=== PATIENT | female | born 1985 | race Asian ===

== ENCOUNTER → 2017-11-05 | Outpatient (CLI) | payer OTHER ==
[~2017-11-05] MED LIST: LEVO50TA PO; MTR600X PO; OMEG10007 PO; OXYC-57 PO; PRENTAB26 PO
[2017-11-05 15:25] LABS: BASO % 0.1 %; BASO ABS # 0.01 K/uL (0-0.2); EOS % 0.7 %; EOS ABS # 0.08 K/uL (0-0.5); HEMATOCRIT 33.9 % (37-47); HEMOGLOBIN 11.3 g/dL (12.0-16.0); IG# 0.09 K/uL (0.00-0.02); LYMPH % 16.2 %; LYMPH ABS # 1.96 K/uL (1.2-3.4); MEAN CELL VOLUME 90.6 fL (80-100); MEAN CORPUSCULAR HEMOGLOBIN 30.2 pg (25-34); MEAN CORPUSCULAR HGB CONC 33.3 g/dl (32-36); MEAN PLATELET VOLUME 9.4 fL (7.4-10.4); MONO % 5.3 %; MONO ABS # 0.64 K/uL (0.11-0.59); NEUT ABS # 9.33 K/uL (1.4-6.5); PLATELET COUNT 313 K/uL (130-400); RED CELL DISTRIBUTION WIDTH CV 14.2 % (11.5-14.5); RED CELL DISTRIBUTION WIDTH SD 46.7 fL (36.4-46.3); WHITE BLOOD COUNT 12.11 K/uL (4.8-10.8)
== END | disposition home or self-care (01) ==
LOC: C.LAB1850 14:21
PROVIDERS: ATTEND Obstetrics & Gynecology
DX: Z34.83 Encounter for supervision of other normal pregnancy, third trimester (principal); Z3A.00 Weeks of gestation of pregnancy not specified

== ENCOUNTER → 2017-11-10 | Outpatient (CLI) | payer OTHER | END | disposition home or self-care (01) | LOC: C.LAB1850 15:30 | PROVIDERS: ATTEND Obstetrics & Gynecology | DX: Z34.83 Encounter for supervision of other normal pregnancy, third trimester (principal) ==

== ENCOUNTER → 2017-12-06 | Outpatient (CLI) | payer OTHER | END | disposition home or self-care (01) | LOC: C.LAB1850 14:24 | PROVIDERS: ATTEND Internal Medicine Endocrinology, Diabetes & Metabolism | DX: E03.9 Hypothyroidism, unspecified (principal) ==

== ENCOUNTER → 2017-12-17 | Outpatient (CLI) | payer OTHER | END | disposition home or self-care (01) | LOC: C.LAB1850 15:50 | PROVIDERS: ATTEND Obstetrics & Gynecology | DX: E06.3 Autoimmune thyroiditis (principal); Z87.59 Personal history of other complications of pregnancy, childbirth and the puerperium ==

== ENCOUNTER → 2017-12-21 | Outpatient (CLI) | payer OTHER | END | disposition home or self-care (01) | LOC: C.LABSPEC 16:14 | PROVIDERS: ATTEND Obstetrics & Gynecology | DX: O09.93 Supervision of high risk pregnancy, unspecified, third trimester (principal) ==

== ENCOUNTER 2018-01-07 04:41 | Inpatient (IN) | payer OTHER ==
[~2018-01-07] VITALS: Ht 157.5 cm; Wt 75.0 kg
[2018-01-07] VITALS (18 sets, daily range): BP systolic 96–108; BP diastolic 57–69; PULSE 77–98; TEMP 36.6–37.1; O2SAT 93–96; Ht 157.5 cm; Wt 75.0 kg
[2018-01-07] MEDS ORDERED: LEVO125T72 PO (05:19)
[2018-01-07] MEDS ORDERED: MAGN400T6 PO (05:20)
[2018-01-07] MEDS ORDERED: LACTATED RINGER'S 1000ML 1,000 ML IV ONE (05:37)
[2018-01-07] MEDS ORDERED: CITRIC ACID/SODIUM CITRATE 15 ML UDC PO ONE (05:45)
[2018-01-07] MEDS ORDERED: MoRPHine SULFATE PF 1 MG/ML 10 ML AMP/VIAL ONE (05:48)
[2018-01-07] MEDS ORDERED: FENTANYL CITRATE INJ 50 MCG/1 ML 2 ML VIAL ONE (05:48)
[2018-01-07] MEDS ORDERED: CLINDAMYCIN IV 900 MG in DEXTROSE 5% 100ML 100 ML IV SCH (06:00)
[2018-01-07] MEDS ORDERED: PHENYLEPHRINE 100MCG/ML 5ML SYR ONE (06:29)
[2018-01-07] MEDS ORDERED: OXYTOCIN INJ 10 UNITS/ML VIAL ONE ×2 (06:29→06:50)
[2018-01-07] MEDS ORDERED: ONDANSETRON INJ 2 MG/ML 2 ML VIAL ONE (06:44)
[2018-01-07] MEDS ORDERED: SUPERCREAM 0.870 % 15GM JAR EXT PRN (07:15)
[2018-01-07] MEDS ORDERED: BENZOCAINE 20% AER SPR 82.5 GM CAN EXT PRN (07:15)
[2018-01-07] MEDS ORDERED: LANOLIN OINT EXT PRN (07:15)
[2018-01-07] MEDS ORDERED: DIPHTHERIA/TETANUS/PERTUSSIS 0.5 ML SYR/VIAL IM. ONE (07:15)
[2018-01-07] MEDS ORDERED: HYDROCORTISONE ACETATE 25 MG SUPP PR PRN (07:15)
--- NOTE | 2018-01-07 07:18 | [facility] Post Operative Brief Note ---
Immediate Operative Summary Operative Date Jan 07, 2018. Pre-Operative Diagnosis LABOR PRIOR DECLINES TOLAC Post-Operative Diagnosis LABOR PRIOR DECLINES TOLAC Procedure(s) Performed REPEAT SECTION Surgeon Dr. Richardson Business Area Manager Surgeon(s) Ekta Law RN Estimated Blood Loss 700 Findings Consistent with Post-Op Diagnosis Specimens 1. Cord Blood 2. Placenta Drains None Anesthesia Type Spinal Complication(s) none Disposition Accompanied Pt To Recover: yes Disposition: L&D
[2018-01-07] MEDS ORDERED: OXYTOCIN INJ 30 UNITS in LACTATED RINGER'S 1000ML 1,000 ML IV SCH (07:20)
[2018-01-07] MEDS ORDERED: NALOXONE HCL INJ 1 MG in SODIUM CHLORIDE 0.9% 1000ML 1,000 ML IV PRN (07:21)
[2018-01-07] MEDS ORDERED: LACTATED RINGER'S 1000ML 500 ML IV PRN (07:21)
[2018-01-07] MEDS ORDERED: SODIUM CHLORIDE 0.9% 1000ML 1,000 ML IV PRN (07:21)
[2018-01-07] MEDS ORDERED: NALOXONE HCL INJ 0.08 MG in SYRINGE 1.8 ML IV PRN (07:21)
--- NOTE | 2018-01-07 07:21 | Anesthesiology Progress Note ---
Anesthesia Post Op Note Date & Time Jan 07, 2018 at 07:21 Notes Mental Status: alert / awake / arousable, participated in evaluation Pt Amnestic to Procedure: Yes Nausea / Vomiting: adequately controlled Pain: adequately controlled Airway Patency, RR, SpO2: stable & adequate BP & HR: stable & adequate Hydration State: stable & adequate Neuraxial Anesthesia: was administered, sensory block is resolving Anesthetic Complications: no major complications apparent
[2018-01-07] MEDS ORDERED: NALOXONE HCL 0.4 MG/1 ML VIAL/CARP IV PRN (07:30)
[2018-01-07] MEDS ORDERED: DiphenhydrAMINE HCL 50 MG/ML VIAL IV PRN (07:30)
[2018-01-07] MEDS ORDERED: EpHEDrine SULFATE INJ 50 MG/ML AMP IV PRN (07:30)
[2018-01-07] MEDS: LACTATED RINGER'S 1000ML 1,000 ML IV SCH ×3 (07:30→19:13)
[2018-01-07] MEDS ORDERED: MoRPHine SULFATE PF 1 MG/ML 10 ML AMP/VIAL INT SPINAL PRN (07:30)
[2018-01-07] MEDS ORDERED: MoRPHine SULFATE 2 MG/ML CARP IV PRN (07:30)
[2018-01-07] MEDS ORDERED: NO NARCOTICS OR SEDATIVES SCH (07:30)
[2018-01-07] MEDS ORDERED: DC INTRASPINAL MORPHINE SCH (07:30)
[2018-01-07] MEDS: ONDANSETRON INJ 2 MG/ML 2 ML VIAL IV PRN ×2 (07:36→13:37)
[2018-01-07] MEDS: DOCUSATE SODIUM 100 MG CAP PO SCH ×2 (07:39→20:04)
[2018-01-07] MEDS: PRENATAL VITAMIN TAB PO SCH (07:40)
[2018-01-07 07:47] LABS: BASO % 0.1 %; BASO ABS # 0.01 K/uL (0-0.2); EOS % 0.2 %; EOS ABS # 0.02 K/uL (0-0.5); HEMATOCRIT 39.5 % (37-47); HEMOGLOBIN 13.3 g/dL (12.0-16.0); IG# 0.08 K/uL (0.00-0.02); LYMPH % 10.8 %; LYMPH ABS # 1.38 K/uL (1.2-3.4); MEAN CORPUSCULAR HEMOGLOBIN 30.3 pg (25-34); MEAN CORPUSCULAR HGB CONC 33.7 g/dl (32-36); MEAN PLATELET VOLUME 9.8 fL (7.4-10.4); MONO ABS # 0.51 K/uL (0.11-0.59); NEUT % 84.3 %; NEUT ABS # 10.74 K/uL (1.4-6.5); PLATELET COUNT 228 K/uL (130-400); RED CELL DISTRIBUTION WIDTH CV 16.4 % (11.5-14.5); RED CELL DISTRIBUTION WIDTH SD 53.8 fL (36.4-46.3); WHITE BLOOD COUNT 12.74 K/uL (4.8-10.8)
--- NOTE | 2018-01-07 07:56 | OPERATIVE REPORT ---
DATE OF OPERATION: 01/07/2018 PREOPERATIVE DIAGNOSES: 1. Ruiz intrauterine at term. 2. Active labor. 3. Prior . 4. Declines vaginal after . 5. Suspected macrosomia. POSTOPERATIVE DIAGNOSES: Same. PROCEDURE: Repeat low transverse section with 2-layer uterine closure. SURGEON: Heather Richardson MD. COMPUTER APPLICATIONS INSTRUCTOR: RN. ESTIMATED BLOOD LOSS: 700 mL. FINDINGS: Uterus with normal tubes and ovaries bilaterally. Placenta manually extracted and intact with a 3-vessel cord. SPECIMENS: Cord blood and placenta. DRAINS: None. ANESTHESIA: Spinal. COMPLICATIONS: None. DISPOSITION: Stable to labor and delivery. DESCRIPTION: Arabella is a 32-year-old para 1 with a history of section for a macrosomic infant and failure to progress. She presented at full term with a ruiz intrauterine and in active labor, making change rapidly once she was examined here on labor and delivery from 4-6 cm with significant effacement as well. The patient was counseled on the option of a trial of labor after and attempted versus repeat . This is expected to be on the larger side, similar to her last one. After considering, the patient decided that she is requesting section as planned. She was therefore brought to the operating room. She was placed on the table in the supine position with a leftward tilt and prepped and draped in standard sterile fashion and a hard time-out was taken prior to proceeding. A Pfannenstiel incision was created through the prior scar at the patient's request, she was very happy with the location of her previous scar. This was carried down sharply to the fascia which was incised and extended using Castellanos scissors. The fascia was then elevated using Masoud clamps and sharply and bluntly dissected off the underlying rectus. The midline of the rectus were sharply using Bovie electrocautery and then entry to the peritoneum was made in a blunt manner. The opening of the peritoneum was extended in a blunt manner using the hot box operator's hands. A bladder blade was then introduced and a bladder flap was created using pickups and Metzenbaum scissors. The bladder blade was then replaced behind the bladder flap. The lower uterine segment was examined and found to be well developed and a transverse incision was then made in the usual manner with final entry to the uterus in a blunt manner using the surgeon's finger. Clear fluid was encountered. The infant's head was then elevated to the hysterotomy from which it was easily delivered using mild fundal pressure. The was a vigorous female whose cord was doubly clamped and cut before the infant was taken to the warmer for attention by stoker installation mechanic. The placenta was manually extracted. The uterus was then exteriorized and cleared of all clot and debris using a dry lap sponge. Angles of the hysterotomy were identified using Allis clamps and the hysterotomy was repaired in 2-layer fashion using 0 Vicryl suture. Once this repair was completed, the uterus was anteflexed and the posterior gutter was cleared of clot and debris using irrigation and suction. The tubes and ovaries were examined and found to be normal bilaterally. Uterus was massaged and felt to be somewhat boggy, so Methergine was given as the uterus began to improve. It was then reinternalized. The lateral gutters were cleared of clot and debris using damp lap sponges. When observed off all tension, the hysterotomy was noted to have a tiny amount of oozing from some of the suture puncture sites. This was addressed using Bovie electrocautery and ultimately a decision was made to apply Avitene to the incision as well as an extra precautionary measure. Once the Avitene was applied, the incision was completely hemostatic. The rectus muscles were allowed to reapproximate naturally and the fascia was then closed using a #1 Vicryl suture in a running nonlocked manner. The subcutaneous tissue was copiously irrigated and then gently reapproximated using 3-0 chromic with the skin finally being closed using 4-0 Monocryl in a running subcuticular manner. A Dermabond dressing was then applied. The Araiza was noted to be draining clear yellow urine and the patient was transferred in stable condition to her recovery room. I attest to the content of the Intraoperative Record and any orders documented therein. Any exception s are noted below.
[2018-01-07] MEDS: NALBUPHINE HCL INJ 10 MG/ML AMP IV PRN ×2 (08:26→12:05)
[2018-01-07] MEDS: SIMETHICONE 80 MG CHEW PO SCH ×4 (09:00→20:04)
[2018-01-07] MEDS ORDERED: LEVOTHYROXINE 125 MCG TAB PO ONE (09:26)
[2018-01-07] MEDS ORDERED: COLLAGEN HEMOSTAT ABSORBABLE ONE (09:42)
[2018-01-07] MEDS: KETOROLAC TROMETHAMINE 30 MG/ML VIAL IV. PRN ×2 (09:46→23:56)
[2018-01-08] MEDS ORDERED: ONDANSETRON INJ 2 MG/ML 2 ML VIAL IV PRN (00:10)
[2018-01-08] MEDS ORDERED: KETOROLAC TROMETHAMINE 30 MG/ML VIAL IV. PRN (00:10)
[2018-01-08] MEDS ORDERED: MEPERIDINE HCL 50 MG/ML CARP IV PRN ×2 (00:10)
[2018-01-08] MEDS ORDERED: DiphenhydrAMINE HCL 50 MG/ML VIAL IV PRN (00:10)
[2018-01-08] MEDS ORDERED: OXYCODONE/ACETAMINOPHEN 5-325 TAB PO PRN (00:10)
[2018-01-08] MEDS ORDERED: PROMETHAZINE HCL INJ 25 MG in SODIUM CHLORIDE 0.9% 50ML 50 ML IV PRN (00:10)
[2018-01-08 00:35] VITALS: O2SAT 94
[2018-01-08 03:45] VITALS: BP 95/55; PULSE 99; TEMP 36.8; O2SAT 99
--- NOTE | 2018-01-08 07:02 | Progress Note ---
Subjective Jan 08, 2018. Subjective conversation w/ patient, physical exam Ambulation: ambulating normally Voiding: no voiding problems Passing Gas: Yes Diet Tolerance: Regular Diet Lochia: Small Feeding Type: Breast Feeding Pain: general soreness with any movement of abdomen Comment: seen and assessed at bedside; no acute events overnight Review of Systems Constitutional: No fever, No chills Respiratory: No cough, No shortness of breath Cardiac: No chest pain, No edema Breast: + breast pain Abdomen: No nausea, No vomiting no headaches or calf pain Objective Vital Signs Date Time Temp Pulse Resp B/P (MAP) Pulse Ox O2 Delivery O2 Flow Rate FiO2 01/08/18 03:45 36.8 99 20 95/55 (68) 99 Room Air 01/08/18 00:35 20 94 01/07/18 23:45 37.0 98 20 96/59 (71) 93 Room Air 01/07/18 23:45 94 Room Air 01/07/18 23:35 20 94 01/07/18 22:35 16 96 01/07/18 21:35 18 95 01/07/18 20:35 18 95 01/07/18 19:35 18 95 01/07/18 19:20 37.1 94 18 104/62 (76) 96 Room Air 01/07/18 18:35 18 96 01/07/18 17:35 16 94 01/07/18 16:35 36.9 89 16 97/57 (70) 94 Room Air 01/07/18 16:35 18 94 01/07/18 16:35 94 Room Air 01/07/18 15:35 18 95 01/07/18 14:35 16 94 01/07/18 13:35 18 94 01/07/18 12:35 36.8 77 18 108/68 (81) 93 Room Air 01/07/18 12:35 16 94 01/07/18 11:35 16 94 01/07/18 11:35 36.7 77 18 108/69 (82) 96 Room Air 01/07/18 10:35 36.8 81 18 102/65 (77) 95 Room Air 01/07/18 10:35 15 95 01/07/18 10:05 36.6 79 18 103/69 (80) 96 Room Air 01/07/18 09:35 Room Air 01/07/18 09:35 14 95 01/07/18 09:35 36.6 90 14 96/61 (73) 95 Room Air 01/07/18 09:35 95 Room Air Physical Exam General Appearance: WELL-APPEARING, NO APPARENT DISTRESS Respiratory/Chest: lungs clear, normal breath sounds Cardiovascular: regular rate, rhythm, no edema, no murmur Abdomen: normal bowel sounds, non tender, soft Fundus: Firm, Non-Tender, Relation to Umbilicus (at umbilicus) Incision Description: Clean, Dry & Intact Extremities: normal range of motion, non-tender, normal inspection, no pedal edema, no calf tenderness Laboratory Results Last 24 Hours Test 01/07/18 07:37 01/07/18 13:11 01/08/18 06:38 White Blood Count 12.74 K/uL Red Blood Count 4.39 M/uL Hemoglobin 13.3 g/dL Hematocrit 39.5 % Mean Corpuscular Volume 90.0 fL Mean Corpuscular Hemoglobin 30.3 pg Mean Corpuscular Hemoglobin Concent 33.7 g/dl Platelet Count 228 K/uL Mean Platelet Volume 9.8 fL Neutrophils (%) (Auto) 84.3 % Lymphocytes (%) (Auto) 10.8 % Monocytes (%) (Auto) 4.0 % Eosinophils (%) (Auto) 0.2 % Basophils (%) (Auto) 0.1 % Neutrophils # (Auto) 10.74 K/uL Lymphocytes # (Auto) 1.38 K/uL Monocytes # (Auto) 0.51 K/uL Eosinophils # (Auto) 0.02 K/uL Basophils # (Auto) 0.01 K/uL RDW Standard Deviation 53.8 fL RDW Coefficient of Variation 16.4 % Immature Granulocyte % (Auto) 0.6 % Immature Granulocyte # (Auto) 0.08 K/uL Bedside Glucose 88 mg/dl Medications Current Inpatient Medications Medications (Trade) Dose Ordered Sig/Tianna Route Start Time Stop Time Status Last Admin Dose Admin Lactated Ringer's 1,000 ml @ 125 mls/hr Q8H IV 01/07/18 07:30 02/06/18 07:29 01/07/18 19:13 125 MLS/HR Ketorolac Tromethamine (Toradol Inj) 30 mg Q6H PRN IV. 01/08/18 00:10 01/13/18 00:09 Meperidine HCl (Demerol Inj) 50 mg Q4H PRN IV 01/08/18 00:10 01/22/18 00:09 Meperidine HCl (Demerol Inj) 75 mg Q4H PRN IV 01/08/18 00:10 01/22/18 00:09 Oxycodone/ Acetaminophen (Percocet 5-325mg Tab) 1 tab Q4H PRN PO 01/08/18 00:10 01/22/18 00:09 Oxycodone/ Acetaminophen (Percocet 5-325mg Tab) 2 tab Q4H PRN PO 01/08/18 00:10 01/22/18 00:09 Ibuprofen (Motrin Tab) 600 mg Q4H PRN PO 01/07/18 07:15 02/06/18 07:14 Promethazine HCl 25 mg/Sodium Chloride 51 ml @ 204 mls/hr Q4H PRN IV 01/08/18 00:10 02/07/18 00:09 Ondansetron HCl (Zofran Inj) 4 mg Q4H PRN IV 01/08/18 00:10 02/07/18 00:09 Prenat Multivit/ Solid Fiber Paster Operator/Iron/Folic Ac ( Vitamin Tab) 1 tab DAILY PO 01/07/18 08:00 02/06/18 07:59 Docusate Sodium (coLACE CAP) 100 mg BID PO 01/07/18 08:00 02/06/18 07:59 01/07/18 20:04 100 MG Cocaine HCl (Supercream 0.870% Cr) BID PRN EXT 01/07/18 07:15 01/21/18 07:14 Lanolin (Lanolin Oint) PRN PRN EXT 01/07/18 07:15 02/06/18 07:14 Hydrocortisone Acetate (Anusol Hc Supp) 25 mg BID PRN [place] 01/07/18 07:15 02/06/18 07:14 Benzocaine (Dermoplast Aero Spr) 1 appln PRN PRN EXT 01/07/18 07:15 02/06/18 07:14 Simethicone (Mylicon Chew Tab) 80 mg QID PO 01/07/18 09:00 02/06/18 08:59 01/07/18 20:04 80 MG Diphenhydramine HCl (Benadryl Cap) 25 mg QID PRN PO 01/08/18 00:10 02/07/18 00:09 Diphenhydramine HCl (Benadryl Inj) 25 mg QID PRN IV 01/08/18 00:10 02/07/18 00:09 Levothyroxine Sodium (Synthroid Tab) 125 mcg DAILYBB PO 01/08/18 07:30 02/07/18 07:29 Assessment and Plan Post-Op Day#: 1 Continue Routine Care: 32 yo F , POD 1 s/p CS Doing well Continue routine care: Encourage ambulation and breast feeding today Pain control with rx prn Resident Physician Supervision Note: I interviewed and examined the patient. Discussed with Dr. Stack and agree with findings and plan as documented in the note. Any exceptions or clarifications are listed here: Dressing removed, incision intact, begin ambulation Documented By: Faheem Calzada Resident Tracking Resident Involvement: Resident Care Provided Care Provided: OB Delivery
[2018-01-08 07:09] LABS: BASO % 0.1 %; BASO ABS # 0.01 K/uL (0-0.2); EOS % 0.3 %; EOS ABS # 0.05 K/uL (0-0.5); HEMATOCRIT 30.6 % (37-47); HEMOGLOBIN 9.8 g/dL (12.0-16.0); IG# 0.05 K/uL (0.00-0.02); LYMPH % 14.4 %; LYMPH ABS # 2.29 K/uL (1.2-3.4); MEAN CELL VOLUME 91.1 fL (80-100); MEAN CORPUSCULAR HEMOGLOBIN 29.2 pg (25-34); MEAN PLATELET VOLUME 9.8 fL (7.4-10.4); MONO ABS # 1.12 K/uL (0.11-0.59); NEUT % 77.9 %; NEUT ABS # 12.39 K/uL (1.4-6.5); PLATELET COUNT 237 K/uL (130-400); RED CELL DISTRIBUTION WIDTH SD 55.8 fL (36.4-46.3); WHITE BLOOD COUNT 15.91 K/uL (4.8-10.8)
[2018-01-08] MEDS: LEVOTHYROXINE 125 MCG TAB PO SCH (08:11)
[2018-01-08] MEDS: PRENATAL VITAMIN TAB PO SCH (08:11)
[2018-01-08] MEDS: DOCUSATE SODIUM 100 MG CAP PO SCH ×2 (08:11→20:12)
[2018-01-08] MEDS: SIMETHICONE 80 MG CHEW PO SCH ×4 (08:11→20:11)
[2018-01-08] MEDS: IBUPROFEN 600 MG TAB PO PRN ×3 (08:18→20:15)
[2018-01-08] MEDS: OXYCODONE/ACETAMINOPHEN 5-325 TAB PO PRN ×3 (08:19→20:15)
[2018-01-08 08:40] VITALS: BP 105/66; PULSE 90; TEMP 36.9; O2SAT 96
[2018-01-08] MEDS ORDERED: OXYC-57 PO (14:41)
[2018-01-08] MEDS ORDERED: MTR600X PO (14:41)
--- NOTE | 2018-01-08 14:43 | Discharge Instructions ---
Discharge Instructions Date of Service Jan 08, 2018. Admission Reason for Admission: LABOR Discharge Discharge Diagnosis / Problem: recovery from repeat Discharge Goals Goal(s): Routine recovery after Medications Continue Dispensed Medications: lansinoh Activity Recommendations Activity Limitations: per Instructions/Follow-up section . Instructions / Follow-Up Instructions / Follow-Up ACTIVITY RECOMMENDATIONS: * Gradual return to full activity over the next 2-3 weeks. * No lifting - nothing heavier than baby over the next 2-3 weeks. * Do not engage in vigorous exercise, sexual activity or sports until cleared by your physician. * Do not drive or operate any motorized equipment until cleared by your physician. * You may shower/bathe daily. MEDICATIONS: For discomfort or pain, you may use Acetaminophen (Tylenol), Ibuprofen (Advil), or Naproxen (Aleve) following the package directions. For constipation you may use Colace following the package directions. BREAST CARE: If you are not breast feeding: * Wear a supportive bra 24 hours a day for one to two weeks. * Avoid stimulating your breasts and nipples as much as possible during the first few weeks after delivery. * When taking a shower, have the warm water hit your back, not breasts. * When your breasts feel full, apply ice packs. Usually three to four times a day helps ease the discomfort. * Take a mild pain medication (Tylenol / Motrin) when you are uncomfortable. If breast feeding: * Use breast milk to lubricate nipples. Lansinoh cream may be used for sore nipples. You do not need to remove cream prior to breast feeding. If using a different brand of cream, check the label for directions regarding removal of cream prior to nursing. * Wear a supportive bra. * If having problems with breasts or breast feeding, call a technical assistance consultant or your health care provider. SPECIAL CARE INSTRUCTIONS: When you are discharged from the hospital, it is important for you to follow the instructions listed below: * During the first week at home, you should be able to care for yourself and your baby. In addition, the usual light household activities are encouraged. * Limit your activities to the way you feel. Do not try to clean the house or move furniture. Be sensible. * If you actively engage in sports and have done so up until the time of your delivery, you may resume these activities as soon as you feel able. This may take up to one month or even longer. Use good judgment. * Continue to take your vitamins for at least six weeks after the of your baby. * Your diet need not be limited unless you were on a special diet before your delivery. Breast-feeding mothers need around 2500 calories per day and at least 64-80 ounces of fluid per day (8 to 10 glasses). * You should eat foods from the four major food groups. Crash diets or fad diets are to be avoided. Eating lean meats, fresh fruits and vegetables, low-fat dairy products, high fiber foods and a regular exercise program, will help you get back to your pre- weight without putting your health at risk. * Constipation is sometimes a problem after delivery. Take a mild laxative as needed. If breast feeding, Milk of Magnesia is acceptable to use. You may use a suppository or Fleets enema. * A daily shower or tub bath is suggested. Wash incision daily with warm soapy water and pat dry. It doesn't need to be covered unless drainage is present. * A bloody vaginal discharge will usually continue until around four weeks . A small amount of bleeding may continue for as long as six weeks. Vaginal discharge changes from the bright red bleeding after delivery to pink then brownish and finally yellowish-pink before becoming white and disappearing. * Bleeding may increase with activity. Your first period may come in 4-8 weeks. If you are breast feeding, your period may be delayed even longer. * [place] (sex) can begin whenever both you and your partner feel comfortable and do not have any form of genital infection. It is recommended that you wait at least six weeks for internal and external healing to occur. If you have questions, please talk to your health care practitioner. A condom should be used to prevent infection and . * Foreplay, gentle intercourse and lubrication is very important the first several times to prevent pain. A water-based lubricant such as K-Y jelly or Astroglide may be used. * If you have RH negative blood and your baby is RH positive, you will receive RHOGAM by injection prior to discharge. The nurse will give you a card to keep with you that has the date and place that you received RHOGAM after delivery. * During your care, you had a Rubella screen done to check for the presence of rubella antibodies in your blood. If your test was negative, you will receive a Rubella vaccine prior to discharge. This vaccine may cause a fever, soreness at the injection site and flu-like symptoms. If these symptoms persist, notify your health care practitioner. is not advised for one month after a Rubella vaccine. * Verbalizes understanding of car seat law as reviewed with patient nursing. * Car Seat hand-out given and reviewed with patient by nursing. * Shaken baby information reviewed with patient by nursing. Call you doctor if: * Heavy bleeding (saturating several pads an hour) or passing clots the size of your fist. * A fever >101 degrees F (38.3 degrees C) on two occasions four hours apart and /or chills. * Unusual pain in the pelvic or vaginal areas. * Call the doctor for any increased redness, drainage or swelling around the incision and any pain unrelieved by prescribed pain medication. * "Baby Blues" lasting longer than two weeks. If you have any questions or concerns, call your health care practitioner at . FOLLOW UP VISIT: * Please call the office at to schedule a 6 week examination. It is important you keep this appointment. It is important for you to make arrangements for either yearly or twice yearly check-ups thereafter. Current Hospital Diet Patient's current hospital diet: Regular OB Diet Discharge Diet Recommended Diet: Regular OB Diet Procedures Procedures Performed: REPEAT SECTION Pending Studies Studies pending at discharge: no Medical Emergencies . Who to Call and When: Medical Emergencies: If at any time you feel your situation is an emergency, please call [phone] immediately. . Non-Emergent Contact Non-Emergency issues call your: [facility]ander . . "Provider Documentation" section prepared by Antonieta Arboleda . [place] Drug Monitoring Program Search Results: patient reviewed within database, no issues identified
[2018-01-08 16:35] VITALS: BP 100/63; PULSE 90; TEMP 36.5
[2018-01-09 00:01] VITALS: BP 94/56; PULSE 81; TEMP 36.8
[2018-01-09] MEDS: IBUPROFEN 600 MG TAB PO PRN (06:39)
[2018-01-09] MEDS: OXYCODONE/ACETAMINOPHEN 5-325 TAB PO PRN (06:40)
[2018-01-09] MEDS: LEVOTHYROXINE 125 MCG TAB PO SCH (07:17)
--- NOTE | 2018-01-09 08:37 | Progress Note ---
Subjective Jan 09, 2018. Subjective conversation w/ patient, physical exam Ambulation: ambulating normally Voiding: no voiding problems Passing Gas: Yes Diet Tolerance: Regular Diet Lochia: Small Feeding Type: Breast Feeding Review of Systems Constitutional: No fever, No chills, No sweats, No weight loss, No weakness, No fatigue, No problem reported Breast: No see HPI, No breast lump, No change in shape, No nipple discharge, No breast pain, No problem reported Abdomen: No pain, No nausea, No vomiting, No diarrhea, No constipation, No GI bleeding, No problem reported Female : No see HPI, No dysuria, No urinary frequency, No hematuria, No incontinence, No abnormal vaginal bleeding, No vaginal discharge, No problem reported Objective Vital Signs Date Time Temp Pulse Resp B/P (MAP) Pulse Ox O2 Delivery O2 Flow Rate FiO2 01/09/18 00:01 36.8 81 16 94/56 (69) Room Air 01/09/18 00:01 Room Air 01/08/18 20:00 Room Air 01/08/18 16:35 Room Air 01/08/18 16:35 36.5 90 18 100/63 (75) Room Air 01/08/18 08:40 Room Air 01/08/18 08:40 36.9 90 16 105/66 (79) 96 Room Air Physical Exam General Appearance: WELL-APPEARING, NO APPARENT DISTRESS Abdomen: soft Fundus: Firm, Non-Tender, Relation to Umbilicus (3 below U) Incision Description: Clean, Dry & Intact Extremities: no calf tenderness Assessment and Plan Post-Op Day#: 2 Continue Routine Care: stable & post-op course discharge to home follow up in 6 weeks
[2018-01-09] MEDS: SIMETHICONE 80 MG CHEW PO SCH (09:02)
[2018-01-09] MEDS: PRENATAL VITAMIN TAB PO SCH (09:02)
[2018-01-09] MEDS: DOCUSATE SODIUM 100 MG CAP PO SCH (09:04)
[2018-01-09 09:42] VITALS: BP 100/66; PULSE 92; TEMP 36.7; O2SAT 97
[2018-01-09 11:30] VITALS: BP_DIAS 66; PULSE 92; TEMP 36.7
== END 2018-01-09 12:35 | disposition home or self-care (01) | DRG 765 ==
LOC: C.LD 04:41 → C.OPB 04:41 → C.LD 05:38 → C.OPB 05:38 → C.OBG 09:41
PROVIDERS: ADMIT Obstetrics & Gynecology; ATTEND Obstetrics & Gynecology
PROC: 10D00Z1 Extraction of Products of Conception, Low, Open Approach (ICD-10-PCS; principal; 2018-01-07 06:20)
DX: O34.211 Maternal care for low transverse scar from previous cesarean delivery (principal); O13.4 Gestational [pregnancy-induced] hypertension without significant proteinuria, complicating childbirth; O40.3XX0 Polyhydramnios, third trimester, not applicable or unspecified; O36.63X0 Maternal care for excessive fetal growth, third trimester, not applicable or unspecified; O99.284 Endocrine, nutritional and metabolic diseases complicating childbirth; E03.9 Hypothyroidism, unspecified; Z37.0 Single live birth

== ENCOUNTER → 2018-02-21 | Outpatient (CLI) | payer OTHER ==
[~2018-02-21] MED LIST changes: +LEVO125T72 PO; -LEVO50TA PO
== END | disposition home or self-care (01) ==
LOC: C.PAPS 11:27
PROVIDERS: ATTEND Obstetrics & Gynecology
DX: Z12.4 Encounter for screening for malignant neoplasm of cervix (principal)